=== PATIENT | female | born 1995 | race Two or more races ===

== ENCOUNTER 2022-03-21 16:36 | Emergency (ER) | payer SELFPAY ==
[~2022-03-21] VITALS: Ht 170.2 cm; Wt 63.5 kg
[2022-03-21 17:09] VITALS: BP 132/74
--- NOTE | 2022-03-21 17:09 | NUR ---
BIBRA 89 C/O L ANKLE PAIN. PT WAS GOING UP THE STAIR AND ROLLER HER ANKLE. PT STATING PAIN IS 8/10 ON PAIN SCALE.
[2022-03-21] MEDS ORDERED: KETOROLAC TROMETHAMINE INJ 60 MG/2 ML VIAL IM ONE (17:30)
[2022-03-21] MEDS ORDERED: KETOROLAC TROMETHAMINE INJ 30 MG/ML VIAL ONE (17:34)
[2022-03-21] MEDS ORDERED: NAPR-1009 PO (19:11)
--- NOTE | 2022-03-21 19:28 | NUR ---
HAND OFF CINDY RIVERA
--- NOTE | 2022-03-21 20:01 | NUR ---
Patient discharged to home in stable condition. Written and verbal after care instructions given. Patient verbalizes understanding of instruction.
== END 2022-03-21 20:02 | disposition home or self-care (01) ==
LOC: ER 16:39
DX: S93.402A Sprain of unspecified ligament of left ankle, initial encounter (principal); W10.9XXA Fall (on) (from) unspecified stairs and steps, initial encounter; Y93.89 Activity, other specified; Y92.89 Other specified places as the place of occurrence of the external cause; Y99.8 Other external cause status
CPT/HCPCS: 99283; 29515; 96372; 73610; J1885